=== PATIENT | male | born 1960 | race Caucasian/White ===

== ENCOUNTER 2023-08-01 08:50 | Observation (INO) ==
--- NOTE | 2023-07-25 10:43 | Anesthesiology Consultation ---
Date of Service July 25, 2023 Assessment & Plan (1) Encounter for pre-operative examination: - Infectious disease screening: Per assessment on 07/25/23: No known infectious disease contacts or current infectious disease symptoms. No noted recent Covid positive test result. - Outpatient joint assessment: Pt currently scheduled for inpatient pathway. If surgeon requests review for outpatient joint pathway and feels this surgery can be done through outpatient pathway from his perspective, patient is medically acceptable candidate from anesthesia standpoint pending surgeon's office assessment that patient is motivated, has good support and completes [facility] preop requirements. Chart Review Chart Review: Acceptable Risk for Surgery (pending evaluation DOS) and Patient NOT seen in Pre Admission Testing History Surgery Operation Date: 08/01/23 11:15 Proposed Procedures p Left Knee Poly Exchange(Left) - Venkata Menjivar DO Height/Weight Height: 5 ft 11 in Weight: 99.79 kg Allergies Allergy/AdvReac Type Severity Reaction Status Date / Time No Known Allergies Allergy Verified 07/25/23 09:30 Medications Home Medications Medication Instructions Recorded Confirmed Last Taken cholecalciferol (vitamin D3) 50 50 mcg PO QAM 07/25/23 07/25/23 Unknown mcg (2,000 unit) capsule (Vitamin D3) multivitamin (Multiple Vitamins 1 tab PO QAM 07/25/23 07/25/23 Unknown tablet) vitamin E 400 unit tablet 200 mg PO QAM 07/25/23 07/25/23 Unknown Past Medical History Medical History History of prostate cancer Approximately , s/p prostatectomy Sleep apnea CPAP Past Surgical History Surgical History History of colonoscopy History of total left knee replacement History of prostatectomy Social History Smoking Status: Never smoker Do You Dip or Chew Tobacco: No Alcohol type: beer alcohol intake frequency: a few times a week Hx Substance Use: No substance use type: does not use Testing Laboratory Results 07/17/23 WBC 6.85 H/H 14.6/44.0 PLATELETS 291 SODIUM 139 POTASSIUM 4.2 CHLORIDE 110 CO2 26.0 BUN 17.0 CREATININE 1.00 GLUCOSE 115 HGBA1C 5.7% PT12.3 PTT 33.4 INR 1.09 Electrocardiogram Date: 07/17/23 Findings: + SB @ (49)
--- NOTE | 2023-07-27 11:08 | History & Physical Report ---
Date of Service July 27, 2023 date of surgery: 08/01/23 Procedure: Left Knee Poly Exchange Surgeon: Venkata Menjivar, DO Assessment & Plan (1) Painful total knee replacement, left: Plan: Presents for evaluation of acute left knee pain. He has a history of left total knee arthroplasty approximately 8 years ago and did well up until about a month ago. States he was standing and felt his knee buckle and felt a pop. Since that time has had catching and locking in his knee. X-rays were reviewed which show no acute findings, no signs of loosening or poly wear. Exam is consistent with a broken post of his polyethylene, patient examined alongside with Dr. Menjivar as well. This point recommend left knee arthrotomy with polyethylene exchange. Will plan on overnight stay at the hospital with home health physical therapy. Placed on aspirin 81 mg twice a day for 1 month postop DVT prophylaxis. He otherwise has no other questions or concerns The risks and benefits have been discussed including, but not limited to, risk of infection, nerve injury, stiffness, loss of motion, failure to improve, etc. Reasonable outcomes and options of treatment were discussed. An explanation of appropriate alternatives to the procedure that may be advantageous were discussed and their risks and benefits, as well as the risks and benefits of not proceeding with treatment. I offered to answer any additional inquiries concerning the treatment involved. All the patient's questions were answered. The patient is agreeable, understanding of the treatment plan and alternatives, and wishes to proceed with the treatment plan. History of Present Illness Chief Complaint: left knee pain Primary Care Provider: NO PCP Mr Barajas is a pleasant 63-year-old male who presented for preop prior to his left knee polyethylene exchange scheduled for August 01. He has a history of left total knee arthroplasty approximately 8 years ago and did well up until about a month ago. States he was standing and felt his knee buckle and felt a pop. Since that time has had catching and locking in his knee. He had about 2 weeks of swelling which is subsided. X-rays were reviewed which show no acute findings, no signs of loosening or poly wear. Exam is consistent with a broken post of his polyethylene, patient examined alongside with Dr. Menjivar as well. Allergies Allergy/AdvReac Type Severity Reaction Status Date / Time No Known Allergies Allergy Verified 07/25/23 09:30 Home Medications Medication Instructions Recorded Confirmed Type cholecalciferol (vitamin D3) 50 50 mcg PO QAM 07/25/23 07/25/23 History mcg (2,000 unit) capsule (Vitamin D3) multivitamin (Multiple Vitamins 1 tab PO QAM 07/25/23 07/25/23 History tablet) vitamin E 400 unit tablet 200 mg PO QAM 07/25/23 07/25/23 History Past Med/Surg History Medical History History of prostate cancer Approximately , s/p prostatectomy Sleep apnea CPAP Surgical History History of colonoscopy History of total left knee replacement History of prostatectomy Social History Smoking Status: Never smoker Do You Dip or Chew Tobacco: No; Hx Substance Use: No Preferred Language: Welsh Communication Ability: Effective Artificial Plastic Eye Maker Required: No Beliefs That Will Affect Care: None Current Living Situation: Spouse Feels Safe at Home: Yes Assistive Devices: CPAP and Glasses Review of Systems Review of Systems: All systems reviewed & are unremarkable except as noted in HPI & below Constitutional: no fever, no chills and no sweats Respiratory: no cough and no dyspnea Cardiovascular: no chest pain, no dyspnea and no orthopnea Gastrointestinal: no abdominal pain, no nausea and no vomiting Musculoskeletal: as per Subjective / HPI Physical Exam Constitutional: WD/WN, vitals as above no acute distress Respiratory: normal respiratory effort, lungs clear to auscultation no respiratory distress, no labored breathing and does not use accessory muscles Cardiovascular: RRR, no murmur, no edema Gastrointestinal (Abdomen): normal bowel sounds, soft, nontender, no hepatosplenomegaly Musculoskeletal: Knee: + knee abnormal to inspection (Left Knee: ), + effusion (+1 effusion), + surgical incision (healed midline incision), + limited ROM of knee (ROM 0/3/110) and + joint line tenderness (medial joint line); no deformity, no skin erythema, no ecchymosis, no crepitation with knee ROM, no valgus laxity and no varus laxity Results & Data Results & Data Diagnostic Findings LEFT KNEE XRAYS History: Left total knee arthroplasty. FINDINGS: The patient is status post a left total knee arthroplasty. The hardware is intact. No fracture or dislocation. IMPRESSION: Left total knee arthroplasty. No evidence for hardware complication.
[~2023-08-01 08:50] MED LIST: ACETAMINOPHEN 500 MG TAB PO SCH; BUPIVACAINE 0.5 % 5 MG/1 ML PF 10ML VIAL ONE; CeleBREX 200 MG CAP PO SCH; DEXAMETHASONE SOD INJ 4 MG/ML VIAL ONE; GABAPENTIN 600 MG DOSE PO SCH; LIDOCAINE 2% 2 ML VIAL/AMP(20MG/ML) INFIL ONE; LR 500ML BOLUS, THEN 15ML/HR IV SCH; LR 60ML/HR IV SCH; MIDAZOLAM HCL 1 MG/ML 2ML VIAL ONE; ONDANSETRON INJ 2 MG/ML 2 ML VIAL ONE; PROPOFOL IV EMULSION 10 MG/ML 20 ML VIAL IV ONE; ROPIV 0.5% 246mg, Ketorolac 30mg, EPINEPHrine 0.5mg in NSS INFIL SCH; ROPIVACAINE 0.5% 5 MG/ML 30 ML VIAL ONE; TRANEXAMIC ACID 1,000 MG **IV Intra-op IV SCH; TRANEXAMIC ACID 1,000 MG **IV Pre-op IV SCH; ceFAZolin 2000MG 2,000 MG/15 ML SYR IV SCH; dexAMETHasone**PF** 10 MG/ML VIAL IV SCH; fentaNYL citrate PF 100 MCG/2 ML VIAL ONE
--- NOTE | 2023-08-01 09:31 | History & Physical Bridge Note ---
Date of Service August 01, 2023 History & Physical Bridge Note I have examined the patient, reviewed the History & Physical and in the interval since the performance of the History & Physical I have noted the following changes of clinical significance: no changes noted
[2023-08-01] MEDS ORDERED: fentaNYL citrate PF 100 MCG/2 ML VIAL IV PRN (10:31)
[2023-08-01] MEDS ORDERED: ATROPINE SULFATE 0.1 MG/ML 10ML SYR IV PRN (10:31)
[2023-08-01] MEDS ORDERED: ePHEDrine sulfate 50 MG/ML AMP IV PRN (10:31)
[2023-08-01] MEDS ORDERED: PROMETHAZINE HCL 12.5 MG in SODIUM CHLORIDE 0.9% 50 ML IV PRN (10:31)
[2023-08-01] MEDS ORDERED: ORTHO JOINT ANESTHETIC ONE (11:19)
--- NOTE | 2023-08-01 12:11 | Operative Report ---
Post Operative Report Pre & Post Diagnosis Operation Date: 08/01/23 10:35 Pre-Op Diagnosis: Broken post left polyethylene. Post-Op Diagnosis: Broken post left polyethylene. I identified the patient and participated in the time-out.: Yes Procedure Operation Date: 08/01/23 10:35 Actual Procedures p Left Knee Poly Exchange(Left)To a size five 6 x10 poly - Venkata Menjivar DO Surgeon Venkata Menjivar DO Business Support Administrator Parvez MANCILLA Estimated Blood Loss 5 Findings Consistent with Post-Op Diagnosis Findings consistent with that of a broken polyethylene post at the base of the post Specimens Broken polyethylene Drains Medium bore Hemovac Anesthesia Type MAC Spinal Regional Disposition Accompanied Patient To Recovery: No Disposition: Recovery Room Indications Patient presents with sudden onset of instability about his left knee after stepping down from a truck and feeling a pop he presents exam consistent of a broken polyethylene post which was verified at time surgery Description of Procedure Initiation of general anesthesia the left lower extremity subcu prep draped usual fashion surgery type with #10 blade was used for midline incision dissection was carried down to the extensor mechanism medial parapatellar incision was made the patella was subluxed subluxed lateralward the proximal tibial poly was evaluated and the poly was fractured off right at the base of the poly was sitting within the notch it was removed the polyethylene spacer was then subsequent removed and upsized and trialed to a size #1010 gave excellent fit and fill excellent stability throughout all ranges of motion subsequently the wound was irrigated with Sterile Saline Solution Subsequently the Final Poly Was Replaced the Size 5 6 by Size 10 Thickness Poly Gave Excellent Stability and Full Range Of Motion Subsequently at the Side of the the Deep Fascia Wound Was Closed #1 Vicryl and a Running Strata Fix over Medium Bore Hemovac Subcu Was Closed with 2-0 Vicryl and Skin Was Closed with a Running V-Loc Sterile Compressive Dressing Was Placed Glue with a Prevena Was Placed the over the Skin Wound the Patient Was Subsidy Taken to Recovery in Stable Condition Please Note LAURENT Pendleton Was an Active Splint Case Dissipated and Poly Removal Poly Placement Wound Closure Deep Fascia Subcu and Skin Was Necessary for the Case I attest to the content of the Intraoperative Record and any orders documented therein. Any exceptions are noted below.
--- NOTE | 2023-08-01 12:53 | Anesthesiology Progress Note ---
Date of Service August 01, 2023 Anesthesia Post Procedure Vital Signs Vital Signs: Temp Pulse Resp BP Pulse Ox O2 Del Method 08/01/23 09:20 36.5 C 66 20 142/74 H 97 Room Air Notes Mental Status: alert / awake / arousable Patient Amnestic to Procedure: Yes Nausea / Vomiting: adequately controlled Pain: adequately controlled Airway Patency, RR, SpO2: stable & adequate BP & HR: stable & adequate Hydration State: stable & adequate Neuraxial Anesthesia: was administered Anesthetic Complications: no major complications apparent
[2023-08-01] MEDS ORDERED: MAGNESIUM HYDROXIDE SUSP 30 ML UDC PO PRN (13:49)
[2023-08-01] MEDS ORDERED: bisacodyL 10 MG SUPP PR PRN (13:49)
[2023-08-01] MEDS ORDERED: HYDROmorphone INJ 1 MG/ML SYRINGE IV PRN (13:49)
[2023-08-01] MEDS ORDERED: NALOXONE HCL 0.4 MG/1 ML VIAL/CARP IV PRN (13:49)
[2023-08-01] MEDS ORDERED: ONDANSETRON INJ 2 MG/ML 2 ML VIAL IV PRN (13:49)
[2023-08-01] MEDS ORDERED: METOCLOPRAMIDE HCL INJ 5 MG/ML 2 ML VIAL IV PRN (13:49)
[2023-08-01] MEDS ORDERED: oxyCODONE HCL IR 5 MG TAB (IMMEDIATE RELEASE) PO PRN (13:49)
--- NOTE | 2023-08-01 13:49 | XRay Report ---
TWO VIEWS LEFT KNEE CLINICAL HISTORY: Postoperative examination. FINDINGS: AP and crosstable lateral portable views of the left knee are obtained. A left knee arthrop lasty is in near anatomic alignment. There has been undersurface remodeling of the patella. No acute fracture is seen. Soft tissue edema and subcutaneous gas around the knee are expected postsurgical fi ndings. IMPRESSION: Expected postoperative changes status post left knee arthroplasty. No acute fracture is s een. ACT 112: Negative or not required by law. Electronically signed by: Tu Agustin M.D. 08/01/2023 1:48 PM
[2023-08-01] MEDS ORDERED: INFLUENZA VIRUS QUADRIVALENT VACCINE (IIV4) 0.5 ML SYR IM ONE (13:56)
[2023-08-01] MEDS: SODIUM CHLORIDE 0.9% 1,000 ML IV SCH (14:07)
[2023-08-01] MEDS: KETOROLAC TROMETHAMINE 15 MG/ML VIAL IV SCH ×2 (14:09→19:37)
[2023-08-01] MEDS: ACETAMINOPHEN 500 MG TAB PO SCH ×2 (16:03→21:34)
[2023-08-01] MEDS: ceFAZolin 2000MG 2,000 MG/15 ML SYR IV SCH (18:35)
[2023-08-01] MEDS ORDERED: SENNA 8.6 MG TAB PO SCH (21:00)
[2023-08-01] MEDS: ASPIRIN 81 MG ECTAB PO SCH (21:32)
[2023-08-01] MEDS: DOCUSATE SODIUM 100 MG CAP PO SCH (21:33)
[2023-08-02] MEDS: SODIUM CHLORIDE 0.9% 1,000 ML IV SCH (00:25)
[2023-08-02] MEDS: ceFAZolin 2000MG 2,000 MG/15 ML SYR IV SCH (02:46)
[2023-08-02] MEDS: KETOROLAC TROMETHAMINE 15 MG/ML VIAL IV SCH ×2 (02:46→07:46)
[2023-08-02] MEDS: ACETAMINOPHEN 500 MG TAB PO SCH (05:43)
[2023-08-02 06:11] LABS: Hematocrit (blood only) 40.9 % (42.0-52.0); Hemoglobin 13.4 g/dl (14.0-18.0); Mean Corpuscular Hemoglobin 29.5 pg (25.0-34.0); Mean Corpuscular Hgb Conc 32.8 g/dL (32.0-36.0); Mean Corpuscular Volume 90.1 fL (80.0-100.0); Mean Platelet Volume 10.3 fL (9.4-12.4); Platelet Count 251 K/uL (130-400); RDW Coefficient of Variation 12.3 % (11.5-14.5); RDW Standard Deviation 40.1 fL (36.4-46.3); Red Blood Count 4.54 M/uL (4.70-6.10); White Blood Count 18.74 K/ul (4.8-10.8)
[2023-08-02 06:26] LABS: BUN Creatinine Ratio 21.3 (10-20); Calcium 9.2 mg/dl (8.6-10.3); Creatinine Clr Calc Pharmacy 98.4 ml/min; Est GFR (African American) 98.9 ml/min; Est GFR (Non-African American) 85.3 ml/min; Potassium 4.3 mmol/L (3.5-5.1)
--- NOTE | 2023-08-02 07:01 | Orthopedic Progress Note ---
Date of Service August 02, 2023 Assessment & Plan (1) Painful total knee replacement, left: Plan: POD #1 s/p left knee poly exchange pt/ot dvt proph with CALVIN/SCD/ASA plan for d/c home with HHPT Admission and Anticipated Discharge Date Admission Date: August 01, 2023 Subjective POD #1 s/p Left knee poly exchange Review of Systems Constitutional: no fever, no chills and no sweats Respiratory: no cough and no dyspnea Cardiovascular: no chest pain and no dyspnea Gastrointestinal: no abdominal pain, no nausea and no vomiting Physical Exam Physical Exam: Vital Signs Temp 36.5 C 08/02/23 03:52 Pulse 56 L 08/02/23 03:52 Resp 18 08/02/23 03:52 BP 116/64 08/02/23 03:52 Pulse Ox 93 08/02/23 03:52 O2 Del Method Room Air 08/02/23 03:52 O2 Flow Rate 2 08/01/23 13:10 Intake & Output 08/01/23 08/02/23 08/02/23 18:59 06:59 18:59 Intake Total 1900 / 2900 1000 / 2900 Output Total 355 / 1305 950 / 1305 Balance 1545 / 1595 50 / 1595 Weight 106.2 kg Intake: IV 100 / 1100 1000 / 1100 Lactated Ringe r's 1,000 ml @ 15 0 / 0 mls/hr IV .Q24 H BHAVYA Rx#: [id number] Sodium Chlorid e 0.9% 1,000 ml @ 1000 / 1000 100 mls/hr IV .Q10H BHAVYA Rx#: [id number] Tranexamic Aci d / 0.7% NaCl 1, 100 / 100 000 mg In 100 ml @ 600 mls/hr IV TODAY@0600 BHAVYA Rx#:[id number] IV Perioperative 1800 / 1800 Output: Urine 350 / 1300 950 / 1300 Estimated Blood Loss 5 / 5 Other: Weight Measureme nt Method Standing Scale Musculoskeletal: Left Leg: NVDI, calf SNT, negative yao sign. DP palpable, able to wiggle toes/ankle movement without difficulty. dressing clean dry and intact. Results & Data Vital Signs (Past 12 Hours) Vital Signs Temp Pulse Resp BP BP Pulse Ox O2 Del Method 08/02/23 03:52 36.5 C 56 L 18 116/64 93 Room Air 08/01/23 23:02 36.6 C 73 18 153/75 H 93 Room Air 08/01/23 19:19 36.6 C 70 18 120/65 94 Room Air
--- NOTE | 2023-08-02 07:05 | Discharge Summary ---
Date of Service date of discharge: August 02, 2023 date of admission: 08/01/23 Admission HPI Per Admitting Provider Mr Barajas is a pleasant 63-year-old male who presented for preop prior to his left knee polyethylene exchange scheduled for August 01. He has a history of left total knee arthroplasty approximately 8 years ago and did well up until about a month ago. States he was standing and felt his knee buckle and felt a pop. Since that time has had catching and locking in his knee. He had about 2 weeks of swelling which is subsided. X-rays were reviewed which show no acute findings, no signs of loosening or poly wear. Exam is consistent with a broken post of his polyethylene, patient examined alongside with Dr. Reed as well. Principal Diagnosis left knee poly exchange Discharge Exam Vital Signs Temp 36.5 C 08/02/23 03:52 Pulse 56 L 08/02/23 03:52 Resp 18 08/02/23 03:52 BP 116/64 08/02/23 03:52 Pulse Ox 93 08/02/23 03:52 O2 Del Method Room Air 08/02/23 03:52 O2 Flow Rate 2 08/01/23 13:10 Intake & Output 08/01/23 08/02/23 08/02/23 18:59 06:59 18:59 Intake Total 1900 / 2900 1000 / 2900 Output Total 355 / 1305 950 / 1305 Balance 1545 / 1595 50 / 1595 Weight 106.2 kg Intake: IV 100 / 1100 1000 / 1100 Lactated Ringer's 1,000 ml @ 15 0 / 0 mls/hr IV .Q24H BHAVYA Rx#: [id number] Sodium Chloride 0.9% 1,000 ml @ 1000 / 1000 100 mls/hr IV .Q10H BHAVYA Rx#: [id number] Tranexamic Acid / 0.7% NaCl 1, 100 / 100 000 mg In 100 ml @ 600 mls/hr IV TODAY@0600 BHAVYA Rx#:[id number] IV Perioperative 1800 / 1800 Output: Urine 350 / 1300 950 / 1300 Estimated Blood Loss 5 / 5 Other: Weight Measurement Method Standing Scale Musculoskeletal left knee: NVDI, calf SNT, negative yao sign. DP palpable, able to wiggle toes/ankle movement without difficulty. GUERO dressing clean dry and intact. Discharge Data Allergies Allergy/AdvReac Type Severity Reaction Status Date / Time No Known Allergies Allergy Verified 08/01/23 09:19 Procedures Performed Operation Date: 08/01/23 10:35 Actual Procedures p Left Knee Poly Exchange(Left) - Venkata Reed DO Ordered Studies 08/01/23 05:00 US - OR guided needle placemen Routine Hospital Course (1) Painful total knee replacement, left: POD #1 s/p left knee poly exchange pt/ot dvt proph with CALVIN/SCD/ASA plan for d/c home with HHPT Total Time Total Time Spent Total Time Spent (In Minutes): 20 Discharge Plan Discharge Items Patient Disposition: Home - Home Health Services Reason For Visit: Left Knee Painful Total Knee Discharge Diagnosis: left knee poly exchange Activity: Per Instructions section Non-emergency contact: Surgeon Call non-emergency contact if: you have any medication questions, your temperature is above 101, your wound has increased redness, your wound has increased drainage and your wound pain has increased Follow-up/Referrals: Jeaneth Ramesh D.O. [Primary Care Provider] - Diet: Regular Addtl Attending Provider Instructions: ACTIVITY RECOMMENDATIONS: SELF CARE INSTRUCTIONS AFTER KNEE SURGERY A. You may need to continue a physical therapy program after discharge from the hospital. There are several options available to you. Your doctor will assist you in selecting the best one for you. 1. An out-patient facility 2 to 3 times a week for therapy or home therapy. 2. Continue working on all exercises taught to you in the hospital. Your goals should be to increase bending of your knee to 90 degrees and beyond and to fully straighten your knee. B. You may progress at your own pace from walking with a walker or crutches to a cane; then to no assistive devices. C. Make walking a part of your daily routine. Be up as much as comfortable with rest periods throughout the day. Rest with leg elevation is very important. Use the ice wrap frequently for the first 3-4 weeks. D. There are no restrictions on activities. You may ride in a car, shop, participate in wheel truing machine tender and all social activities. E. Wear the long elastic stockings (CALVIN hose) 20 hours a day for 2 weeks after surgery. They can be removed several times a day for laundering and for a bath. F. You may shower, no tub baths until cleared by your doctor. SPECIAL CARE INSTRUCTIONS: VERY IMPORTANT TO READ AND REVIEW A. There are a few signs you need to watch for after you are home. Call [facility] if you notice any of the followin. Increased severe knee pain. Some pain is expected especially when you exercise. 2. Increased swelling in your leg or knee; pain or swelling of the calf muscle in either lower leg. 3. Any fluid drainage from the incision. 4. Shortness of breath or chest pain. B. Please call [facility] at if you have any concerns or questions about your operation or recovery. The doctor or his nurse will return your call promptly. C. You must take antibiotics before dental work, bladder, bowel or other surgery. Your doctor will provide you with a permanent care to carry describing this precaution. IMPORTANT: * REMEMBER TO TAKE ASPIRIN, 81 MG, TWICE DAILY FOR 4 WEEKS UNLESS OTHERWISE DIRECTED. THIS IS YOUR BLOOD THINNER. * HIGH RISK PATIENTS MAY BE PRESCRIBED A STRONGER BLOOD THINNER. THIS WILL BE PROVIDED AT DISCHARGE. * CALL IF INCREASED PAIN, REDNESS, DRAINAGE OR FEVER GREATER THAT 101. * WEAR CALVIN HOSE 20 HOURS PER DAY FOR 2 WEEKS. GUERO Dressing- This is a large suction dressing covering your incision. This will help pull any excess drainage from the wound and allow your incision to heal properly. You may shower with this if you can keep the unit outside of the shower. If any bleeding or leakage is noted please call your doctor's office. This will remain on your incision for 7 days and then should be removed. This can be done yourself or by the home nursing staff if applicable. The entire unit is disposable once removed. Once removed, keep incision clean and dry. If redness or drainage is noted, please call your surgeon. FOLLOW UP VISIT: If appointment is not already scheduled: Please call [facility] to make a follow-up appointment for 2 weeks after your surgery at . Pending Studies at Discharge: No Stand-Alone Forms: My [facility] [employer] Medications and DC Order Prescriptions: New acetaminophen 500 mg tablet 1,000 mg PO Q8 21 Days Qty: 126 0RF celecoxib [Celebrex] 200 mg capsule 200 mg PO BID 30 Days Qty: 60 0RF aspirin 81 mg tablet,delayed release (DR/EC) 81 mg PO BID 30 Days Qty: 60 0RF cefadroxil 500 mg capsule 500 mg PO BID 14 Days Qty: 28 0RF docusate sodium 100 mg Capsule 100 mg PO BID Qty: 20 0RF oxycodone 5 mg tablet 5 - 10 mg PO Q6H PRN (Reason: pain) Qty: 30 0RF Rx Instructions: ongoing therapy, supervising dr tiffany reed. max 6 tabs in 24 hours Continued multivitamin [Multiple Vitamins] Tablet 1 tab PO QAM vitamin E 400 unit Tablet 200 mg PO QAM cholecalciferol (vitamin D3) [Vitamin D3] 50 mcg (2,000 unit) Capsule 50 mcg PO QAM Admission Data Admit Date/Time: 08/01/23 12:40 Attending Provider: Venkata Reed Admit Provider: Venkata Reed Primary Care Provider: Jeaneth Ramesh
[2023-08-02] MEDS ORDERED: MULTIVITAMIN TAB PO SCH (09:00)
[2023-08-02] MEDS ORDERED: TOCOPHERYL, DL-ALPHA 100 UNITS 67 MG CAP PO SCH (09:00)
[2023-08-02] MEDS ORDERED: CeleBREX 200 MG CAP PO SCH ×2 (09:00→21:00)
[2023-08-02] MEDS ORDERED: CHOLECALCIFEROL 1,000 UNITS 25 MCG TAB PO SCH (09:00)
[2023-08-02] MEDS: ASPIRIN 81 MG ECTAB PO SCH (09:48)
[2023-08-02] MEDS: DOCUSATE SODIUM 100 MG CAP PO SCH (09:48)
== END 2023-08-02 10:35 | disposition home health service (06) ==
LOC: ASU 08:50 → 3E 08:50